=== PATIENT | female | born 1970 | race Caucasian/White ===

== ENCOUNTER 2022-03-31 13:13 | Outpatient (CLI) | payer OTHER ==
[2022-03-31] MEDS ORDERED: BARIUM SULFATE 135 ML SUSP.RECON (E-Z-HD) PO ONE (13:25)
== END 2022-03-31 21:11 | disposition home or self-care (01) ==
LOC: SRD 13:13
DX: R13.10 Dysphagia, unspecified (principal)
CPT/HCPCS: 74220-TC